=== PATIENT | female | born 1945 | race American Indian/Alaskan Native ===

== ENCOUNTER 2018-07-12 11:42 | Emergency (ER) | payer MEDICARE ==
[2018-07-12 12:16] VITALS: BMI 28.3
[2018-07-12 12:20] VITALS: RESP 18; TEMP 98; O2SAT 98
--- NOTE | 2018-07-12 12:39 | ED PDOC ---
Arrival/HPI - General Chief Complaint: Hip Pain Time Seen by Provider: 07/12/18 12:17 Historian: Patient - History of Present Illness Narrative History of Present Illness (Text): 07/12/18 12:30 73 years old female, with past medical history of hypertension, presents to the Emergency Department complaining of vaginal pain since Monday. Patient informs worsening pain with movement since yesterday prompting her to present to the Emergency Department for medical evaluation. Patient informs taking laxatives worrying it was secondary to gas but denies any improvement. Patient denies any dysuria, vaginal bleeding or changes in bowel movement. Patient denies any fever , chills, nausea, vomiting, diarrhea, abdominal pain, chest pain, shortness of breath, cough, headache, dizziness, neck pain, back pain, or any other complaints. Time/Duration: < week Symptom Onset: Gradual Symptom Course: Unchanged Quality: Pressure Activities at Onset: Light Context: Home Past Medical History - Provider Review Nursing Documentation Reviewed: Yes - Reproductive Menopause: Yes - Cardiac Hx Cardiac Disorders: Yes Hx Hypertension: Yes - Psychiatric Hx Substance Use: No - Surgical History Hx Cardiac Catheterization: Yes - Anesthesia Hx Anesthesia: Yes Hx Anesthesia Reactions: No Hx Malignant Hyperthermia: No Family/Social History - Physician Review Nursing Documentation Reviewed: Yes Family/Social History: No Known Family HX Smoking Status: Never Smoked Hx Alcohol Use: No Hx Substance Use: No Allergies/Home Meds Allergies/Adverse Reactions: Allergies Penicillins Allergy (Verified 07/12/18 12:15) ITCHING Review of Systems - Physician Review All systems were reviewed & negative as marked: Yes - Review of Systems Constitutional: absent: Fevers Respiratory: absent: SOB, Cough Cardiovascular: absent: Chest Pain, LOVELL Gastrointestinal: absent: Abdominal Pain, Stool Changes, Diarrhea, Nausea, Vomiting Genitourinary Female: Other (Vaginal discomfort). absent: Dysuria, Urine Output Changes, Vaginal Bleeding Musculoskeletal: absent: Back Pain, Neck Pain Neurological: absent: Headache, Dizziness Physical Exam Vital Signs Reviewed: Yes Vital Signs Temp Pulse Resp BP Pulse Ox 07/12/18 17:49 75 18 127/87 98 07/12/18 17:36 69 18 128/61 98 07/12/18 16:41 74 18 131/65 98 07/12/18 15:24 71 18 135/71 98 07/12/18 12:20 98.0 F 66 18 139/74 98 Temperature: Afebrile Blood Pressure: Normal Pulse: Regular Respiratory Rate: Normal Appearance: Positive for: Well-Appearing, Non-Toxic, Comfortable Pain Distress: None Mental Status: Positive for: Alert and Oriented X 3 - Systems Exam Head: Present: Atraumatic, Normocephalic Pupils: Present: PERRL Extroacular Muscles: Present: EOMI Conjunctiva: Present: Normal Mouth: Present: Moist Mucous Membranes Neck: Present: Normal Range of Motion Respiratory/Chest: Present: Clear to Auscultation, Good Air Exchange. No: Respiratory Distress, Accessory Muscle Use Cardiovascular: Present: Regular Rate and Rhythm, Normal S1, S2. No: Murmurs Abdomen: No: Tenderness, Distention, Peritoneal Signs Genitourinary/Pelvic Exam: Present: Normal External Genitalia (RN present as physical director). No: Vaginal Bleeding, Adenexal Tenderness, Adenexal Mass Back: Present: Normal Inspection Upper Extremity: Present: Normal Inspection. No: Cyanosis, Edema Lower Extremity: Present: Normal Inspection. No: Edema Neurological: Present: GCS=15, CN II-XII Intact, Speech Normal Skin: Present: Warm, Dry, Normal Color. No: Rashes Psychiatric: Present: Alert, Oriented x 3, Normal Insight, Normal Concentration Medical Decision Making ED Course and Treatment: 07/12/18 12:45 Impression: 73 year old female presents to the Emergency Department complaining of vaginal discomfort. Plan: -- VBG -- Labs -- Chest X-ray -- X-ray of Abdomen -- Urinalysis -- Reassess and disposition Prior Visits: Notes and results from previous visits were reviewed. Progress Note: 07/12/18 15:28 EKG: Ordered, reviewed, and independently interpreted the EKG. Rate : 71 BPM Rhythm : NSR Interpretation: Sinus rhythm with 1st degree AV block. 07/12/18 15:44 Chest X-ray reviewed by radiologist, shows no active disease. X-ray of Abdomen reviewed, shows no active disease. - Lab Interpretations Lab Results: 07/12/18 13:30 07/12/18 13:30 Lab Results 07/12/18 14:20: Urine Color Yellow, Urine Appearance Clear, Urine pH 8.0, Ur Specific [place] 1.015, Urine Protein Trace H, Urine Glucose (UA) Negative, Urine Ketones Negative, Urine Blood Negative, Urine Nitrate Negative, Urine Bilirubin Negative, Urine Urobilinogen 0.2, Ur Leukocyte Esterase Negative, Urine RBC 0 - 2, Urine WBC 1 - 3, Ur Epithelial Cells Many, Urine Bacteria Many , Urine Other [place]yeast 07/12/18 13:30: Sodium 138, Chloride 100, Potassium 3.1 L, Carbon Dioxide 27, Anion Gap 14, BUN 9, Creatinine 0.7, Est GFR ( Amer) > 60, Est GFR (Non- Af Amer) > 60, Random Glucose 101, Calcium 9.3, Total Bilirubin 0.5, AST 22, ALT < 6 L, Alkaline Phosphatase 103, Lactate Dehydrogenase 503, Total Creatine Kinase 101, Troponin I < 0.01, Total Protein 8.2, Albumin 4.1, Globulin 4.1, Albumin/Globulin Ratio 1.0 L 07/12/18 13:30: pO2 51, VBG pH 7.44 H, VBG pCO2 49.0, VBG HCO3 33.3 H, VBG Total CO2 34.8 H, VBG O2 Sat (Calc) 90.7 H, VBG Base Excess 7.8 H, VBG Potassium 3.0 L, Sodium 138.0, Chloride 101.0, Glucose 97, Lactate 0.8, FiO2 21.0, Venous Blood Potassium 3.0 L 07/12/18 13:30: PT 13.1 H, INR 1.15 07/12/18 13:30: WBC 6.7, RBC 4.91, Hgb 12.7, Hct 38.9, MCV 79.2 L, MCH 25.9, MCHC 32.6, RDW 14.8 H, Plt Count 324, MPV 9.1, Gran % 58.3, Lymph % (Auto) 28.3 , [place] % (Auto) 11.5 H, Eos % (Auto) 1.6, Baso % (Auto) 0.3, Gran # 3.92, Lymph # (Auto) 1.9, [place] # (Auto) 0.8 H, Eos # (Auto) 0.1, Baso # (Auto) 0.02 - RAD Interpretation Radiology Orders: 07/12/18 12:36 CHEST PORTABLE [RAD] Stat ABD 2 VIEWS (FLAT/UP OR DECUB) [RAD] Stat 07/12/18 15:08 ABD PELVIS PO & IV CONTRAST [CT] Stat - Medication Orders Current Medication Orders: Discontinued Medications Morphine Sulfate (Morphine) 4 mg IVP STAT STA Stop: 07/12/18 15:09 Ondansetron HCl (Zofran Inj) 4 mg IVP STAT STA Stop: 07/12/18 15:09 - Scribe Statement The provider has reviewed the documentation as recorded by the Scribe Rashmi Guillen. All medical record entries made by the Scribe were at my direction and personally dictated by me. I have reviewed the chart and agree that the record accurately reflects my personal performance of the history, physical exam, medical decision making, and the department course for this patient. I have also personally directed, reviewed, and agree with the discharge instructions and disposition. Disposition/Present on Arrival - Present on Arrival Any Indicators Present on Arrival: No History of DVT/PE: No History of Uncontrolled Diabetes: No Urinary Catheter: No History of Decub. Ulcer: No History Surgical Site Infection Following: None - Disposition Have Diagnosis and Disposition been Completed?: Yes Diagnosis: Abdominal pain Disposition: HOME/ ROUTINE Disposition Time: 18:28 Patient Plan: Discharge Condition: GOOD Discharge Instructions (ExitCare): Acute Abdomen (Belly Pain), Adult (DC) Additional Instructions: Mrs Timbo Morrissey- All of your test results are normal and I do not know why you are having so much pain. Please see Dr. Ng tomorrow (Monday). I called her but she did not call me back. Best- Dr. Manuelito Sams Referrals: Heike Ng MD [Primary Care Provider] - Follow up with primary Forms: Get[employer] (Georgian)
--- NOTE | 2018-07-12 13:42 | RAD ---
Date of service: 07/12/2018 HISTORY: Abdominal Pain COMPARISON: 12/04/2017 FINDINGS: LUNGS: No active pulmonary disease. PLEURA: No significant pleural effusion identified, no pneumothorax apparent. CARDIOVASCULAR: Normal. OSSEOUS STRUCTURES: No significant abnormalities. VISUALIZED UPPER ABDOMEN: Normal. OTHER FINDINGS: None. IMPRESSION: No active disease.
[2018-07-12 13:51] LABS: VENOUS BLOOD GAS BASE EXCESS 7.8 mmol/L (0.0-2.0); VENOUS BLOOD GAS PO2 51 mm/Hg (30-55); VENOUS BLOOD PH 7.44 (7.32-7.43)
[2018-07-12 13:59] LABS: INR 1.15; PROTHROMBIN TIME 13.1 SECONDS (9.4-12.5)
[2018-07-12 14:03] LABS: ALBUMIN 4.1 g/dL (3.0-4.8); AST/SGOT 22 U/L (14-36); BLOOD UREA NITROGEN 9 mg/dL (7-21); CALCIUM 9.3 mg/dL (8.4-10.5); GFR NON-AFRICAN AMERICAN > 60
[2018-07-12 14:04] LABS: ALT/SGPT < 6 U/L (7-56)
[2018-07-12 14:10] LABS: HEMOGLOBIN 12.7 g/dL (12.0-16.0); MEAN CELL VOLUME 79.2 fl (80.0-105.0); MEAN CORPUSCULAR HEMOGLOBIN 25.9 pg (25.0-35.0); MEAN CORPUSCULAR HGB CONC 32.6 g/dl (31.0-37.0); RBC 4.91 10^6/uL (3.5-6.1); RED CELL DISTRIBUTION WIDTH 14.8 % (11.5-14.5); WHITE BLOOD COUNT 6.7 10^3/ul (4.5-11.0)
[2018-07-12 14:11] LABS: BASO # 0.02 K/mm3 (0.0-2.0); BASO % 0.3 % (0.0-3.0); EOS # 0.1 (0.0-0.7); EOS % 1.6 % (1.5-5.0); GRAN # 3.92 (1.4-6.5); GRAN % 58.3 % (50.0-68.0); LYMPH # 1.9 (1.2-3.4); LYMPH % 28.3 % (22.0-35.0); MEAN PLATELET VOLUME 9.1 fl (7.0-11.0); MONO # 0.8 (0.1-0.6); MONO % 11.5 % (1.0-6.0)
[2018-07-12 14:14] LABS: TROPONIN I < 0.01 ng/mL
--- NOTE | 2018-07-12 14:44 | RAD ---
Date of service: 07/12/2018 HISTORY: abd pain, flatulence COMPARISON: No prior. FINDINGS: BOWEL: Normal. No obstruction. No free air. BONES: Normal. OTHER FINDINGS: None. IMPRESSION: No active disease.
[2018-07-12 14:47] LABS: URINE BILIRUBIN NEGATIVE (NEGATIVE); URINE BLOOD NEGATIVE (NEGATIVE); URINE GLUCOSE (UA) NEGATIVE (NEGATIVE); URINE LEUKOCYTE ESTERASE NEGATIVE Leu/uL (NEGATIVE); URINE PROTEIN TRACE mg/dL (<30 mg/dL); URINE UROBILINOGEN 0.2 E.U./dL (<1 E.U./dL)
[2018-07-12 14:53] LABS: URINE APPEARANCE CLEAR (CLEAR); URINE COLOR YELLOW (YELLOW)
[2018-07-12 14:58] LABS: URINE BACTERIA MANY (NEG); URINE EPITHELIAL CELLS MANY /hpf (0-5); URINE RBC 0 - 2 /hpf (0-2)
[2018-07-12] MEDS ORDERED: Morphine 4 mg/ml ISec IVP STA (15:08)
[2018-07-12] MEDS ORDERED: Iohexol 240 (50 ml) ONE (15:19)
[2018-07-12] MEDS ORDERED: Iohexol 350 MG/100 ML VIAL ONE (16:50)
[2018-07-12 17:49] VITALS: BP 127/87; PULSE 75
--- NOTE | 2018-07-12 17:57 | CT ---
PROCEDURE: CT Abdomen and Pelvis with oral and IV contrast. HISTORY: Bilateral Lower Quadrant Suprapubic Pain COMPARISON: None available TECHNIQUE: Contiguous axial images of the abdomen and pelvis. Oral and IV contrast was administered. Coronal and Sagittal reformats generated and reviewed. Contrast dose: 100 mL Omnipaque 350 Radiation dose: Total exam DLP = 486.11 mGy-cm. This CT exam was performed using one or more of the following dose reduction techniques: Automated exposure control, adjustment of the mA and/or kV according to patient size, and/or use of iterative reconstruction technique. FINDINGS: LOWER THORAX: No visible consolidation, pleural effusion, or pneumothorax. LIVER: Unremarkable. GALLBLADDER AND BILE DUCTS: Unremarkable. PANCREAS: Unremarkable. SPLEEN: Unremarkable. ADRENALS: Unremarkable. KIDNEYS AND URETERS: The kidneys enhance symmetrically. No hydronephrosis or obstructing renal calculus. BLADDER: The urinary bladder appears unremarkable. REPRODUCTIVE: Uterus is present. APPENDIX: The appendix appears within normal limits of caliber. No secondary signs of acute appendicitis. BOWEL: The stomach is nondistended. The bowel loops appear within normal limits of caliber without evidence of intestinal obstruction. Diverticulosis without CT evidence of acute diverticulitis. PERITONEUM: No significant free fluid. No definite free air. LYMPH NODES: Sub cm mesenteric lymph nodes, nonspecific. No bulky lymphadenopathy identified. VASCULATURE: Dense atherosclerotic calcification of the aorta and branches. No aortic aneurysm. BONES: Degenerative changes. OTHER FINDINGS: None. IMPRESSION: Diverticulosis without CT evidence of acute diverticulitis. Additional findings as above.
--- NOTE | 2018-07-12 19:33 | CARD ---
APPROVED REPORT Date of service: 07/12/2018 EKG Measurement Heart [id number] CT [id number] <Conclusion> Sinus rhythm with 1st degree AV block Nonspecific T wave abnormality Abnormal ECG
== END 2018-07-12 18:55 | disposition home or self-care (01) ==
LOC: ED 11:42
DX: R10.2 Pelvic and perineal pain (principal); I10 Essential (primary) hypertension
CPT/HCPCS: 71045; 74019; 74177; 80053; 81001; 82550; 82803; 83615; 84484; 85025; 85610; 87086; 93005; 99285; Q9966; Q9967